=== PATIENT | female | born 1975 | race Two or more races ===

== ENCOUNTER 2020-05-26 12:45 | Inpatient (IN) | payer OTHER ==
[~2020-05-26] VITALS: Ht 172.7 cm; Wt 99.8 kg
[2020-05-26] MEDS ORDERED: HEMOCYTE PLUS1 EACH PO (15:02)
[2020-05-26] MEDS ORDERED: LEVOTHYROXINE25 MCG PO (15:02)
[2020-05-26] MEDS ORDERED: SUPER C PO (15:03)
== END 2020-06-03 17:46 | disposition home or self-care (01) | DRG 331 ==
LOC: SURH 06-01 06:00 → O/R 06-01 06:00 → SURH 06-01 12:45
PROVIDERS: ADMIT Colon & Rectal Surgery; ATTEND Colon & Rectal Surgery
PROC: 0DBN4ZZ Excision of Sigmoid Colon, Percutaneous Endoscopic Approach (ICD-10-PCS; 2020-06-01)
PROC: 07BB4ZX Excision of Mesenteric Lymphatic, Percutaneous Endoscopic Approach, Diagnostic (ICD-10-PCS; 2020-06-01)
PROC: 07BC4ZX Excision of Pelvis Lymphatic, Percutaneous Endoscopic Approach, Diagnostic (ICD-10-PCS; 2020-06-01)
PROC: 0D1 Gastrointestinal System, Bypass (ICD-10-PCS; 2020-06-01)
PROC: 0DBP4ZZ Excision of Rectum, Percutaneous Endoscopic Approach (ICD-10-PCS; principal; 2020-06-01 10:00)
DX: C19 Malignant neoplasm of rectosigmoid junction (principal); E03.8 Other specified hypothyroidism; D50.0 Iron deficiency anemia secondary to blood loss (chronic); G47.33 Obstructive sleep apnea (adult) (pediatric)

== ENCOUNTER 2020-05-31 10:34 | Day surgery (SDC) | payer OTHER ==
[~2020-05-31 10:34] MED LIST: HEMOCYTE PLUS1 EACH PO; LEVOTHYROXINE25 MCG PO; SUPER C PO
== END 2020-05-31 15:00 | disposition home or self-care (01) ==
LOC: AMB-ENDOS 10:34
PROVIDERS: ATTEND Colon & Rectal Surgery
DX: C19 Malignant neoplasm of rectosigmoid junction (principal); K64.1 Second degree hemorrhoids; Z20.828 Contact with and (suspected) exposure to other viral communicable diseases